=== PATIENT | male | born 1945 | race Caucasian/White ===

== ENCOUNTER 2020-03-23 10:07 | Emergency (ER) | payer OTHER, SELFPAY ==
[2020-03-23] VITALS (20 sets, daily range): BP systolic 101–150; BP diastolic 63–83; PULSE 49–67; RESP 13–21; TEMP 36.3; O2SAT 94–100
--- NOTE | ~2020-03-23 | XR_ITS ---
EXAMINATION: XR chest 2V DATE: 03/23/2020 10:58 INDICATION: Dizziness. Shortness of breath. TECHNIQUE: Frontal and lateral views of the chest were obtained. COMPARISON: Chest 2 views 04/05/2019, CT abdomen and pelvis 05/11/2019 FINDINGS: The chest demonstrates clear lungs without pneumonia, pleural effusion, or pneumothorax. Th e heart size is normal. IMPRESSION: 1. No acute cardiopulmonary disease. Reviewed, dictated and finalized at location B.
--- NOTE | ~2020-03-23 | CT_ITS ---
EXAMINATION: CT brain wo con EXAM DATE: 03/23/2020 11:02 INDICATION: Dizziness. TECHNIQUE: Spiral CT of the head was performed without contrast. Axial, coronal and sagittal images were reviewed. The dose-length product (DLP) for this examination was 681.00 mGy-cm. The exposure w as tailored according to patient size, and iterative reconstruction (ASIR) was used as additional dos e reduction technique. Comparison is made to prior examination from 04/05/2019. FINDINGS: There is no acute intraparenchymal hemorrhage. No evidence of intraparenchymal brain mass lesion. No evidence of acute infarction. Please note that initial head CT has limited sensitivity f or small or acute infarctions. There is mild periventricular and subcortical hypodensity, nonspecific but probably related to small vessel ischemic disease. There is moderate prominence of the sulci a nd ventricles related to cerebral atrophy. There is intracranial carotid arteriosclerosis. There a re no extra-axial collections. There is no mass effect or midline shift. The orbits are unremarkabl e. Soft tissue is unremarkable. Minimal ethmoid mucoperiosteal thickening. IMPRESSION: 1. No acute intracranial findings. 2. Chronic age related findings. Reviewed, dictated and finalized at location A.
--- NOTE | 2020-03-23 10:16 | ECG_ITS ---
Measurements Intervals [place] Rate: 52 P: 31 [place]: 181 QRS: 33 QRSD: 108 T: 51 QT: 461 QTc: 432 Interpretive Statements SINUS BRADYCARDIA MINIMAL Q WAVES- INFERIOR LEADS BORDERLINE ECG Electronically Signed On 03-23-2020 10:30:20 CDT by Christian Canas D.O.
[2020-03-23 10:46] LABS: Basophils Percent Auto 0.7 % (0.2-1.2); Eosinophils Absolute Auto 0.1 K/mm3 (0-0.3); Eosinophils Percent Auto 1.7 % (0-4.4); Hematocrit 42.1 % (42.0-52.0); Hemoglobin 14.4 g/dL (14.0-18.0); Immature Granulocyte Absolute 0.02 K/mm3 (0.00-0.031); Immature Granulocyte Percent A 0.3 % (0-0.5); Lymphocytes Absolute Auto 0.65 K/mm3 (0.9-3.2); Lymphocytes Percent Auto 11.1 % (18.3-44.2); Mean Corpuscular HGB Conc 34.2 g/dl (32-36); Mean Corpuscular Hemoglobin 29.6 pg (26-34); Mean Corpuscular Volume 86.4 fl (80-100); Mean Platelet Volume 11.5 fl (7.4-10.4); Monocytes Absolute Auto 0.4 K/mm3 (0.1-0.6); Monocytes Percent Auto 6.5 % (2.6-8.5); Neutrophils Absolute Auto 4.6 K/mm3 (1.3-6.7); Neutrophils Percent Auto 79.7 % (45.5-73.1); Platelet Count Result 175 k/mm3 (150-375); Red Blood Count 4.87 M/mm3 (4.6-6.20); Red Cell Distribution Width 12.8 % (11.5-14.5); White Blood Count 5.8 K/mm3 (4.5-10.0)
--- NOTE | 2020-03-23 10:56 | ED.GENADULT ---
HPI - General Adult General Chief complaint: Unspecified Stated complaint: Dizzy Time Seen by Provider: 03/23/20 10:12 Source: patient Mode of arrival: EMS Limitations: dementia History of Present Illness HPI narrative: This is a 74-year-old male that presents the emergency department for an episode of lightheadedness this morning. Reports he had gotten up and eating breakfast and started feeling lightheaded while he was standing. He felt like he was going to pass out. He also felt short of breath. This lasted for about 30 minutes and was relieved with rest. They called EMS for him to be evaluated. Does report one more episode of lightheadedness while walking into the ambulance. Denies any symptoms currently. Denies fever, vision changes, vomiting, weakness, numbness, chest pain, abdominal pain, or dysuria. Related Data Home Medications Medication Instructions Recorded Confirmed allopurinol 100 mg tablet 100 mg PO DAILY 07/06/19 08/29/19 atorvastatin 40 mg tablet 40 mg PO DAILY 07/06/19 08/29/19 clopidogrel 75 mg tablet 75 mg PO DAILY 07/06/19 08/29/19 finasteride 5 mg tablet 5 mg PO DAILY 07/06/19 08/29/19 olmesartan 40 1 tablet PO DAILY 07/06/19 08/29/19 mg-hydrochlorothiazide 12.5 mg tablet aspirin 81 mg tablet,delayed 81 mg PO DAILY 07/08/19 08/29/19 release cetirizine [Zyrtec] 10 mg 03/23/20 Allergies Allergy/AdvReac Type Severity Reaction Status Date / Time No Known Allergies Allergy Verified 12/30/19 08:49 Review of Systems Review of Systems: Narrative: CONSTITUTIONAL: Denies fever EYES: Denies visual changes ENT: Denies rhinorrhea, congestion, sore throat CARDIOVASCULAR: Denies chest pain, palpitations RESPIRATORY: Reports dyspnea. GASTROINTESTINAL: Denies abdominal pain, nausea, vomiting GENITOURINARY: Denies dysuria or hematuria. NEUROLOGIC: Denies headache, numbness, or weakness. All systems reviewed & are unremarkable except as noted in HPI and below PMFSH Past Medical History Medical History (Updated 03/23/20 @ 12:33 by Aislinn Coy PA-C) Back pain L4 and L5 stenosis Cataracts, bilateral Diabetes mellitus Fractures Left hand 1985, left elbow as a child GERD (gastroesophageal reflux disease) Hypertension Hypothyroidism Pneumonia Surgical History Surgical History H/O inguinal hernia repair Social History Social History Smoking status: Former smoker Second hand tobacco smoke exposure: No Alcohol intake: never Exam Narrative: Exam Narrative: GENERAL: Well-appearing, well-nourished, and in no acute distress. HEAD: Normocephalic, atraumatic. EYES: PERRLA and EOMI. ENT: Nares clear, no rhinorrhea or epistaxis. Mucous membranes moist. Oropharynx without tonsillar hypertrophy exudate or other lesions. Bilateral TMs pearly mendez non-bulging NECK: Supple. No adenopathy or masses. No carotid bruits or JVD CHEST: Clear to auscultation. No respiratory distress. No wheezes rales or rhonchi HEART: Regular rate and rhythm. No murmur heard. Normal peripheral pulses. EXTREMITIES: Normal range of motion. No edema. SKIN: Warm, dry, no rash. NEURO: No focal deficits. Alert and oriented x3. Cranial nerves II through XII grossly intact PSYCH: Normal mood and affect Course Vital Signs Vital signs: Vital Signs Temperature 97.3 F L 03/23/20 10:09 Pulse Rate 56 L 03/23/20 10:09 Respiratory Rate 18 03/23/20 10:09 Blood Pressure 150/72 H 03/23/20 10:09 Pulse Oximetry 98 03/23/20 10:09 Temperature 97.3 F L 03/23/20 10:09 Pulse Rate 60 03/23/20 11:45 Respiratory Rate 18 03/23/20 10:09 Blood Pressure 143/79 H 03/23/20 11:46 Pulse Oximetry 98 03/23/20 10:09 Medical Decision Making MDM Narrative Medical decision making narrative: Patient presents to the emergency department for an episode of lightheadedness this morning. Denies any chest
[2020-03-23 11:05] LABS: Anion Gap 8 mmol/L (8-16); Blood Urea Nitrogen 18 mg/dL (9-20); Calcium 8.5 mg/dL (8.4-10.2); Carbon Dioxide 25 mmol/L (22-30); Chloride 103 mmol/L (98-107); Estimated CRCL calculation 65 ml/min; Estimated Glomerular Filt Rate > 60; Glucose 235 mg/dL (75-110); Potassium 3.8 mmol/L (3.4-5.0); Sodium 136 mmol/L (137-145)
[2020-03-23 11:38] LABS: Troponin I < 0.012 ng/mL (0.000-0.034)
== END 2020-03-23 12:45 | disposition home or self-care (01) ==
PROVIDERS: Physician Assistant; Emergency Provider Emergency Medicine; PCP Internal Medicine
DX: R42 Dizziness and giddiness (principal); E11.9 Type 2 diabetes mellitus without complications; K21.9 Gastro-esophageal reflux disease without esophagitis; I10 Essential (primary) hypertension; E03.9 Hypothyroidism, unspecified; Z87.891 Personal history of nicotine dependence; H26.9 Unspecified cataract; R00.1 Bradycardia, unspecified
CPT/HCPCS: 36415; 70450; 71046; 80048; 84484; 85025; 93005; 99284

== ENCOUNTER 2020-10-03 11:30 | Outpatient (CLI) | payer OTHER, SELFPAY | END 2020-10-03 11:31 | disposition home or self-care (01) | LOC: ANHCOVIDVC 11:30 | PROVIDERS: PCP Physician Assistant | DX: Z23 Encounter for immunization (principal) | CPT/HCPCS: 0001A; 91300 ==

== ENCOUNTER 2020-10-24 11:33 | Outpatient (CLI) | payer OTHER, SELFPAY | END 2020-10-24 11:34 | disposition home or self-care (01) | LOC: ANHCOVIDVC 11:33 | PROVIDERS: PCP Physician Assistant | DX: Z23 Encounter for immunization (principal) | CPT/HCPCS: 0002A; 91300 ==

== ENCOUNTER 2021-02-16 07:05 | Outpatient (CLI) | payer OTHER, SELFPAY ==
[2021-02-16 07:29] LABS: Hematocrit 45.3 % (42.0-52.0); Mean Corpuscular HGB Conc 33.1 g/dl (32-36); Mean Corpuscular Hemoglobin 29.2 pg (26-34); Mean Corpuscular Volume 88.1 fl (80-100); Mean Platelet Volume 10.7 fl (7.4-10.4); Platelet Count Result 207 k/mm3 (150-375); Red Blood Count 5.14 M/mm3 (4.6-6.20); White Blood Count 7.5 K/mm3 (4.5-10.0)
[2021-02-16 07:38] LABS: Alanine Aminotransferase 32 U/L (4-50); Albumin Level 4.1 g/dL (3.5-5.1); Alkaline Phosphatase 78 U/L (38-126); Anion Gap 8 mmol/L (8-16); Aspartate Amino Transferase 33 U/L (17-59); Bilirubin,Total 0.6 mg/dL (0.2-1.3); Blood Urea Nitrogen 14 mg/dL (9-20); Calcium 8.9 mg/dL (8.4-10.2); Carbon Dioxide 26 mmol/L (22-30); Chloride 106 mmol/L (98-107); Cholesterol 112 mg/dL (0-200); Estimated Glomerular Filt Rate > 60; Glucose 112 mg/dL (65-110); HDL Direct 36 mg/dL; Potassium 3.9 mmol/L (3.4-5.0); Sodium 140 mmol/L (137-145); Triglycerides 121 mg/dL (<150)
[2021-02-16 07:48] LABS: LDL Cholesterol Direct 52 mg/dL
[2021-02-16 08:13] LABS: Hemoglobin A1C 6.8 % (<5.7)
== END 2021-02-16 07:06 | disposition home or self-care (01) ==
PROVIDERS: PCP Internal Medicine; Visit Provider Physician Assistant
DX: E78.5 Hyperlipidemia, unspecified (principal); R53.83 Other fatigue; E03.9 Hypothyroidism, unspecified; E11.9 Type 2 diabetes mellitus without complications
CPT/HCPCS: 36415; 80053; 80061; 83036; 84439; 84443; 85027

== ENCOUNTER 2021-11-06 07:38 | Outpatient (CLI) | payer OTHER, SELFPAY ==
[2021-11-06 08:50] LABS: Basophils Absolute Auto 0.1 K/mm3 (0.0-0.1); Basophils Percent Auto 0.8 % (0.2-1.2); Eosinophils Absolute Auto 0.4 K/mm3 (0-0.3); Eosinophils Percent Auto 3.6 % (0-4.4); Hematocrit 44.5 % (42.0-52.0); Hemoglobin 14.9 g/dL (14.0-18.0); Immature Granulocyte Absolute 0.04 K/mm3 (0.00-0.031); Immature Granulocyte Percent A 0.4 % (0-0.5); Lymphocytes Absolute Auto 1.31 K/mm3 (0.9-3.2); Lymphocytes Percent Auto 13.3 % (18.3-44.2); Mean Corpuscular HGB Conc 33.5 g/dl (32-36); Mean Corpuscular Hemoglobin 30.2 pg (26-34); Mean Corpuscular Volume 90.3 fl (80-100); Mean Platelet Volume 10.3 fl (7.4-10.4); Monocytes Percent Auto 9.7 % (2.6-8.5); Neutrophils Absolute Auto 7.1 K/mm3 (1.3-6.7); Neutrophils Percent Auto 72.2 % (45.5-73.1); Platelet Count Result 228 k/mm3 (150-375); Red Blood Count 4.93 M/mm3 (4.6-6.20); Red Cell Distribution Width 12.7 % (11.5-14.5); White Blood Count 9.9 K/mm3 (4.5-10.0)
[2021-11-06 08:56] LABS: Anion Gap 6 mmol/L (8-16); Blood Urea Nitrogen 20 mg/dL (9-20); Calcium 8.7 mg/dL (8.4-10.2); Carbon Dioxide 29 mmol/L (22-30); Chloride 101 mmol/L (98-107); Cholesterol 123 mg/dL (0-200); Estimated Glomerular Filt Rate > 60; Glucose 129 mg/dL (65-110); HDL Direct 32 mg/dL; Potassium 3.7 mmol/L (3.4-5.0); Sodium 136 mmol/L (137-145); Triglycerides 185 mg/dL (<150)
[2021-11-06 09:07] LABS: LDL Cholesterol Direct 51 mg/dL
[2021-11-06 09:09] LABS: INR 1.1; Prothrombin Time 13.3 Seconds (11.1-14.7)
== END 2021-11-06 07:39 | disposition home or self-care (01) ==
PROVIDERS: PCP Internal Medicine
DX: R94.39 Abnormal result of other cardiovascular function study (principal); I70.211 Atherosclerosis of native arteries of extremities with intermittent claudication, right leg; E78.5 Hyperlipidemia, unspecified; M79.609 Pain in unspecified limb; E05.90 Thyrotoxicosis, unspecified without thyrotoxic crisis or storm; I10 Essential (primary) hypertension; R09.89 Other specified symptoms and signs involving the circulatory and respiratory systems
CPT/HCPCS: 36415; 80048; 80061; 85025; 85610

== ENCOUNTER 2022-04-29 10:38 | Outpatient (CLI) | payer MEDICARE, SELFPAY ==
[2022-04-29 11:08] LABS: Basophils Absolute Auto 0.1 K/mm3 (0.0-0.1); Basophils Percent Auto 0.8 % (0.2-1.2); Eosinophils Absolute Auto 0.2 K/mm3 (0-0.3); Eosinophils Percent Auto 2.6 % (0-4.4); Hematocrit 44.2 % (42.0-52.0); Hemoglobin 14.9 g/dL (14.0-18.0); Immature Granulocyte Absolute 0.03 K/mm3 (0.00-0.031); Immature Granulocyte Percent A 0.4 % (0-0.5); Lymphocytes Absolute Auto 1.01 K/mm3 (0.9-3.2); Lymphocytes Percent Auto 13.9 % (18.3-44.2); Mean Corpuscular HGB Conc 33.7 g/dl (32-36); Mean Corpuscular Hemoglobin 29.2 pg (26-34); Mean Corpuscular Volume 86.7 fl (80-100); Mean Platelet Volume 10.6 fl (7.4-10.4); Monocytes Absolute Auto 0.7 K/mm3 (0.1-0.6); Monocytes Percent Auto 9.2 % (2.6-8.5); Neutrophils Absolute Auto 5.3 K/mm3 (1.3-6.7); Neutrophils Percent Auto 73.1 % (45.5-73.1); Platelet Count Result 214 k/mm3 (150-375); White Blood Count 7.3 K/mm3 (4.5-10.0)
[2022-04-29 11:47] LABS: Alanine Aminotransferase 41 U/L (6-50); Albumin Level 4.2 g/dL (3.5-5.1); Alkaline Phosphatase 87 U/L (38-126); Anion Gap 9 mmol/L (8-16); Aspartate Amino Transferase 37 U/L (17-59); Bilirubin,Total 0.6 mg/dL (0.2-1.3); Blood Urea Nitrogen 19 mg/dL (9-20); Calcium 8.7 mg/dL (8.4-10.2); Carbon Dioxide 29 mmol/L (22-30); Chloride 103 mmol/L (98-107); Estimated Glomerular Filt Rate 59; Glucose 127 mg/dL (65-110); Potassium 3.9 mmol/L (3.4-5.0); Sodium 141 mmol/L (137-145); Uric Acid 5.5 mg/dL (3.5-8.5)
[2022-04-29 12:28] LABS: Creatinine Urine 145.1 mg/dL
[2022-04-29 12:32] LABS: MALB Creatinine Ratio 6.4 mg/g (0-30); Microalbumin Urine Random 9.3 mg/L (0-16.7)
[2022-04-29 12:50] LABS: Folic Acid 10.9 ng/mL (2.76->20)
[2022-04-29 13:02] LABS: Hemoglobin A1C 6.7 % (<5.7)
== END 2022-04-29 10:39 | disposition home or self-care (01) ==
PROVIDERS: PCP Internal Medicine; Visit Provider Physician Assistant
DX: E11.9 Type 2 diabetes mellitus without complications (principal); E03.9 Hypothyroidism, unspecified; R53.83 Other fatigue; E79.0 Hyperuricemia without signs of inflammatory arthritis and tophaceous disease
CPT/HCPCS: 36415; 80053; 82043; 82607; 82746; 83036; 84439; 84443; 84550; 85025

== ENCOUNTER 2022-06-28 12:16 | Emergency (ER) | payer MEDICARE, SELFPAY ==
--- NOTE | ~2022-06-28 | XR_ITS ---
XR chest 2V 06/28/2022 14:19 Indication: Cough Procedure: PA and lateral views the chest Comparison: Comparison to multiple prior studies sequentially, with oldest reviewed study dated 12/19. Findings: Bibasilar infiltrates. Heart size normal. There is atherosclerosis. No pleural effusion, ed wilfred or pneumothorax. Impression: 1: Bibasilar infiltrates may represent atelectasis or developing pneumonia. Reviewed, dictated and finalized at location A. ING DIRECTOR Impression: 1: Bibasilar infiltrates may represent atelectasis or developing pneumonia.
[2022-06-28 13:19] VITALS: BP 118/70; PULSE 58; RESP 16; TEMP 36.6; O2SAT 98
--- NOTE | 2022-06-28 14:06 | ED.GENADULT ---
HPI - General Adult General Chief complaint: Upper Respiratory Infection Stated complaint: Cough, Sinus Source: patient and family Mode of arrival: ambulatory Limitations: no limitations History of Present Illness HPI narrative: Patient presents for evaluation of cough for the last 5 days. Cough is no productive of yellow sputum. He cannot tell me definitively whether he has any shortness of breath. He has experienced sinus congestion and drainage. No fever, chills, nausea, vomiting, diarrhea. No recent sick contacts to his knowledge. He smokes about 3 cigarettes per day. He has underlying dementia. His states that his DM is well controlled but they do not check his BS at home. No personal hx of COVID. No additional complaints or concerns. Related Data Home Medications Medication Instructions Recorded Confirmed clopidogrel 75 mg tablet 75 mg PO DAILY 07/06/19 06/28/22 finasteride 5 mg tablet 5 mg PO DAILY 07/06/19 06/28/22 cetirizine 10 mg capsule (Zyrtec) 10 mg PO DAILY 03/23/20 06/28/22 krill 500 mg-omega-3 150 mg-dha 45 1 cap PO DAILY 01/09/21 06/28/22 mg-epa 75 [id number] capsule (krill oil) tamsulosin 0.4 mg capsule 0.4 mg PO BID 01/20/22 06/28/22 acetaminophen 650 mg 650 mg PO Q8H PRN Pain 06/28/22 06/28/22 tablet,extended release Allergies Allergy/AdvReac Type Severity Reaction Status Date / Time No Known Allergies Allergy Verified 06/28/22 13:17 Review of Systems Review of Systems: CONSTITUTIONAL: Denies fever, chills, or sweats. EYES: Denies visual changes, redness, or discharge. ENT: Reports sinus congestion. Denies sore throat or otalgia. CARDIOVASCULAR: Denies chest pain, palpitations, or edema. RESPIRATORY: reports productive cough of yellow sputum. GASTROINTESTINAL: Denies abdominal pain, nausea, vomiting, or diarrhea. GENITOURINARY: Denies dysuria or hematuria. SKIN: Denies rash or itching. MUSCULOSKELETAL: Denies back pain, joint pain, or myalgia. NEUROLOGIC: Denies headache, numbness, dizziness, or weakness. PSYCHIATRIC: Denies anxiety or depression. [facility] Past Medical History Medical History Back pain L4 and L5 stenosis Cataracts, bilateral Diabetes mellitus Fractures Left hand 1985, left elbow as a child GERD (gastroesophageal reflux disease) Hypertension Hypothyroidism Pneumonia Surgical History Surgical History H/O inguinal hernia repair Family History Family History Father Acute myocardial infarction Mother Family history of malignant neoplasm Sibling Family history of diabetes mellitus in first degree relative Social History Social History Smoking packs per day: 0.25 Smoking cigarettes per day: 5.0 Smoking status: Current every day smoker Second hand tobacco smoke exposure: No Additional smoking assessment comments: Pt refused to answer Alcohol intake: never Substance use: never Gender identity (if verbalized by the patient): Male Sexual Orientation (if Verbalized by the Patient): Straight or Heterosexual Spiritual care concerns: No Exam Narrative: GENERAL: Well-appearing, well-nourished, and in no acute distress. HEAD: Normocephalic, atraumatic. EYES: PERRLA and EOMI. ENT: Nares clear, no rhinorrhea or epistaxis. Mucous membranes moist. Oropharynx without tonsillar hypertrophy exudate or other lesions. Bilateral TMs pearly mendez nonbulging NECK: Supple. No adenopathy or masses. No carotid bruits or JVD CHEST: Wheezing and rales noted bilaterally and posterior lung lee. HEART: Regular rate and rhythm. No murmur heard. Normal peripheral pulses. ABDOMEN: Soft, nontender, nondistended, normal active bowel sounds. EXTREMITIES: Normal range of motion. No edema. S
== END 2022-06-28 14:55 | disposition home or self-care (01) ==
PROVIDERS: Emergency Provider Nurse Practitioner; PCP Internal Medicine
DX: J10.1 Influenza due to other identified influenza virus with other respiratory manifestations (principal); J18.9 Pneumonia, unspecified organism; Z20.822 Contact with and (suspected) exposure to COVID-19; F17.210 Nicotine dependence, cigarettes, uncomplicated; E11.9 Type 2 diabetes mellitus without complications; K21.9 Gastro-esophageal reflux disease without esophagitis; I10 Essential (primary) hypertension; E03.9 Hypothyroidism, unspecified; H26.9 Unspecified cataract
CPT/HCPCS: 71046; 87426; 87804; 99213; C9803; G0463

== ENCOUNTER 2022-09-09 12:19 | Outpatient (CLI) | payer MEDICARE, SELFPAY ==
--- NOTE | 2022-09-10 10:15 | P.NEURO_ITS ---
Neurology EEG Report General Information Date of Study: 09/09/22 TEST Routine EEG DIAGNOSIS Myoclonic jerks CONDITION OF RECORDING Awake, drowsy, asleep EEG NUMBER [id number] CLINICAL HISTORY Patient with a history of dementia, currently being evaluated for twitching movements of the upper body. EEG DESCRIPTION There is no well defined posterior dominant rhythm. Anterior-posterior gradient is present. Background appears symmetric, and consists of mostly theta range activity. As patient enters stage II sleep, sleep spindles are noted. There are no epileptiform discharges or seizures during this recording. Patient had multiple instances of body jerking, which did not appear to have any electrographic correlate. Photic stimulation did not elicit any abnormal photoparoxysmal response. Hyperventilation was not performed. IMPRESSION This is an abnormal routine EEG recorded in the awake and asleep states due to the lack of well-defined posterior dominant rhythm, which can be suggestive of m ild encephalopathy. No seizures or epileptiform discharges noted during the recording. Clinical correlation recommended.
== END 2022-09-09 12:20 | disposition home or self-care (01) ==
PROVIDERS: PCP Internal Medicine; Visit Provider Student in an Organized Health Care Education/Training Program
DX: G25.3 Myoclonus (principal); R94.01 Abnormal electroencephalogram [EEG]; F03.90 Unspecified dementia, unspecified severity, without behavioral disturbance, psychotic disturbance, mood disturbance, and anxiety
CPT/HCPCS: 95816

== ENCOUNTER 2022-10-14 15:34 | Emergency (ER) | payer MEDICARE, SELFPAY ==
[2022-10-14 15:39] VITALS: BP 142/78; PULSE 72; RESP 18; TEMP 36.6; O2SAT 100
--- NOTE | 2022-10-14 15:41 | ECG_ITS ---
Measurements Intervals [place] Rate: 67 P: 36 AL: 191 QRS: -12 QRSD: 91 T: 61 QT: 402 QTc: 426 Interpretive Statements SINUS RHYTHM BORDERLINE R WAVE PROGRESSION, ANTERIOR LEADS CONSIDER INFERIOR INFARCT, AGE INDETERMINATE NONSPECIFIC T-WAVE ABNORMALITY- HIGH LATERAL LEADS BASELINE ARTIFACT- I, II, AVR, AVL, AVF, V1-V6 ABNORMAL ECG COMPARED TO ECG 03/23/2020 10:18:30 SINUS RHYTHM NOW PRESENT T-WAVE ABNORMALITY NOW PRESENT Electronically Signed On 10-14-2022 16:32:46 CDT by Christian Canas D.O.
[2022-10-14 15:59] LABS: Basophils Absolute Auto 0.1 K/mm3 (0.0-0.1); Basophils Percent Auto 0.8 % (0.2-1.2); Eosinophils Absolute Auto 0.1 K/mm3 (0-0.3); Eosinophils Percent Auto 1.6 % (0-4.4); Hematocrit 42.3 % (42.0-52.0); Hemoglobin 14.3 g/dL (14.0-18.0); Immature Granulocyte Absolute 0.01 K/mm3 (0.00-0.031); Immature Granulocyte Percent A 0.1 % (0-0.5); Lymphocytes Absolute Auto 1.03 K/mm3 (0.9-3.2); Lymphocytes Percent Auto 14.6 % (18.3-44.2); Mean Corpuscular HGB Conc 33.8 g/dl (32-36); Mean Corpuscular Hemoglobin 29.8 pg (26-34); Mean Corpuscular Volume 88.1 fl (80-100); Mean Platelet Volume 10.6 fl (7.4-10.4); Monocytes Absolute Auto 0.7 K/mm3 (0.1-0.6); Monocytes Percent Auto 10.2 % (2.6-8.5); Neutrophils Absolute Auto 5.1 K/mm3 (1.3-6.7); Neutrophils Percent Auto 72.7 % (45.5-73.1); Platelet Count Result 210 k/mm3 (150-375); Red Cell Distribution Width 13.2 % (11.5-14.5); White Blood Count 7.1 K/mm3 (4.5-10.0)
[2022-10-14 16:09] LABS: Alanine Aminotransferase 32 U/L (6-50); Albumin Level 4.3 g/dL (3.5-5.1); Alkaline Phosphatase 89 U/L (38-126); Anion Gap 7 mmol/L (8-16); Aspartate Amino Transferase 33 U/L (17-59); Bilirubin,Total 0.6 mg/dL (0.2-1.3); Blood Urea Nitrogen 28 mg/dL (9-20); Calcium 8.9 mg/dL (8.4-10.2); Carbon Dioxide 30 mmol/L (22-30); Chloride 104 mmol/L (98-107); Estimated CRCL calculation 59 ml/min; Estimated Glomerular Filt Rate 59; Glucose 217 mg/dL (65-110); Potassium 3.5 mmol/L (3.4-5.0); Sodium 141 mmol/L (137-145)
[2022-10-14 16:10] LABS: INR 1.1; Prothrombin Time 13.7 Seconds (11.1-14.7)
[2022-10-14 16:11] LABS: Partial Thromboplastin Time 24.6 SECONDS (22.3-36.8)
[2022-10-14 19:49] VITALS: BP 152/84; PULSE 66; RESP 18; O2SAT 99
--- NOTE | 2022-10-14 21:18 | ED.AMS ---
HPI - Altered Mental Status General Chief Complaint: Altered Mental Status Stated Complaint: Weakness Time Seen by Provider: 10/14/22 19:57 History of Present Illness HPI narrative: Patient is a 77-year-old male who presents to the ER with concerns of progression of dementia and possible infection. Patient has been diagnosed with dementia and is on palliative care. Over the last week feels like he has been a bit more confused. He tries to get to the bathroom and will be incontinent of urine. She feels like he shuffles a bit more. He is being worked up for myoclonic jerks by neurology. Patient's had no fevers or chills or sweats. No previous history of UTI. He has not struck his head. Related Data Home Medications Medication Instructions Recorded Confirmed finasteride 5 mg tablet 5 mg PO DAILY 07/06/19 07/23/22 cetirizine 10 mg capsule (Zyrtec) 10 mg PO DAILY 03/23/20 07/23/22 krill 500 mg-omega-3 150 mg-dha 45 1 cap PO DAILY 01/09/21 07/23/22 mg-epa 75 fq-oawvqdw-oiefm capsule (krill oil) tamsulosin 0.4 mg capsule 0.4 mg PO BID 01/20/22 07/23/22 acetaminophen 650 mg 650 mg PO Q8H PRN Pain 06/28/22 07/23/22 tablet,extended release melatonin 10 mg tablet 10 mg PO QHS 08/07/22 quetiapine 25 mg tablet 25 mg PO QHS 08/07/22 Allergies Allergy/AdvReac Type Severity Reaction Status Date / Time No Known Allergies Allergy Verified 08/07/22 10:52 Review of Systems Review of Systems: ROS unobtainable: Yes unobtainable due to mental status PMFSH Past Medical History Medical History (Updated 10/14/22 @ 22:08 by Meng Lacy MD) Back pain L4 and L5 stenosis Cataracts, bilateral Diabetes mellitus Fractures Left hand 1985, left elbow as a child GERD (gastroesophageal reflux disease) Hypertension Hypothyroidism Pneumonia S/P arteriogram of extremity Surgical History Surgical History (Updated 08/07/22 @ 10:57 by Alicia Groves MA) H/O hernia repair (~06/2019) H/O inguinal hernia repair Hx of decompressive lumbar laminectomy (~11/2015) Family History Family History Father Acute myocardial infarction Mother Family history of malignant neoplasm Sibling Family history of diabetes mellitus in first degree relative Social History Social History Smoking packs per day: 0.25 Smoking cigarettes per day: 5.0 Smoking status: Current every day smoker Second hand tobacco smoke exposure: No Additional smoking assessment comments: Pt refused to answer Alcohol intake: never Substance use: never Lack of Transportation: No Lack of Food: Never True Current Housing: I Have Housing Concerned About Future Housing: No Difficulty Paying Gas/Electric Bills: No Difficulty Paying for Meds: No Currently Unemployed: No Education: High School Diploma/GED Difficulty w/ Childcare or Family Care: No Gender identity (if verbalized by the patient): Male Sexual Orientation (if Verbalized by the Patient): Straight or Heterosexual Spiritual care concerns: No Exam Narrative: GENERAL: Well-appearing, well-nourished, and in no acute distress. HEAD: Normocephalic, atraumatic. EYES: PERRL and EOMI. ENT: Mucous membranes moist. CHEST: Clear to auscultation. No respiratory distress. HEART: Regular rate and rhythm. Normal peripheral pulses. ABDOMEN: Soft, nontender, nondistended. EXTREMITIES: Normal range of motion. 1= edema. SKIN: Warm, dry, no rash. NEURO: Resting tremor. Alert and oriented x1. PSYCH: Normal mood and affect. Course Course Emergency Course: No evidence of infection here. Slight elevation in BUN but not felt to require fluids. No hypotension. Recommend patient's contact palliative care [facility] tomorrow. They are going to attempt to look for placement in a memory care or long term facility. Vital Signs Vital signs: Vital Si
[2022-10-14 21:33] LABS: Appearance Urine Clear (Clear); Bacteria Urine None Seen /hpf; Bilirubin Urine Negative (Negative); Blood Urine 1+ (Negative); Color Urine Yellow (Yellow); Glucose Urine UA Negative (Negative); Hyaline Casts Urine Present /lpf; Ketones Urine Negative (Negative); Leukocyte Esterase Ur Negative LEU/UL (Negative); Nitrate Urine Negative (Negative); Non Pathogenic Casts 0-2; Protein Urine Trace mg/dL (Negative); Specific Grav Ur 1.025 (1.001-1.035); Squamous Epithelial Cell Urine None seen /hpf (Few); Urobilinogen Urine 0.2 mg/dL (<2.0); WBC Urine 0-5 /hpf
[2022-10-14 21:40] LABS: Add Urine Microscopic? YES
[2022-10-15 01:00] VITALS: BP 130/80; PULSE 68; O2SAT 96
--- NOTE | 2022-10-15 02:38 | PC.NURSE ---
patient able to stand and transfer to wheelchair, reports patient shuffles when he walks, reports feeling comfortable taking patient home
== END 2022-10-15 01:00 | disposition home or self-care (01) ==
PROVIDERS: Emergency Provider Emergency Medicine; PCP Internal Medicine
DX: F03.90 Unspecified dementia, unspecified severity, without behavioral disturbance, psychotic disturbance, mood disturbance, and anxiety (principal); E11.9 Type 2 diabetes mellitus without complications; I10 Essential (primary) hypertension; E03.9 Hypothyroidism, unspecified; K21.9 Gastro-esophageal reflux disease without esophagitis; F17.210 Nicotine dependence, cigarettes, uncomplicated; Z79.84 Long term (current) use of oral hypoglycemic drugs; Z79.02 Long term (current) use of antithrombotics/antiplatelets
CPT/HCPCS: 36415; 80053; 81001; 85025; 85610; 85730; 93005; 99284